=== PATIENT | male | born 1945 | race Caucasian/White ===

== ENCOUNTER 2020-12-21 06:56 | Day surgery (SDC) | payer MEDICARE ==
[~2020-12-21] VITALS: Ht 182.9 cm; Wt 97.0 kg
[~2020-12-21 06:56] MED LIST: ASPI81TA45 PO; CHOL10003 PO; CITRACAL PO; EMPA10TA PO; INSU100I32 SC; INSU100V14 SC; LOSA25TA25 PO; MESA10005 RC; NOVOLOG SC; OMEP-110 PO; SEMA1PEN3 SC; STOOL SOFTENER PO
[2020-12-21] MEDS ORDERED: ATOR20TA37 PO (07:35)
[2020-12-21 07:38] VITALS: BP 129/83
[2020-12-21] MEDS ORDERED: METOPROLOL 1 MG/ML, 5ML IV PRN (08:00)
[2020-12-21] MEDS ORDERED: PROMETHAZINE 25 MG/ML, 1ML IVPush PRN ×2 (08:00→08:30)
[2020-12-21] MEDS ORDERED: CHLORHEXIDINE 15 ML UDC PO ONE (08:00)
[2020-12-21] MEDS ORDERED: LACTATED RINGERS 1,000 ML IV SCH (08:00)
[2020-12-21] MEDS ORDERED: EPHEDRINE 50 MG/ML, 1ML IVPush PRN (08:00)
[2020-12-21] MEDS ORDERED: ACETAMINOPHEN 325 MG TABLET PO PRN ×2 (08:00→08:30)
[2020-12-21] MEDS ORDERED: LABETALOL 5MG/ML, 20ML IV PRN (08:00)
[2020-12-21] MEDS ORDERED: ONDANSETRON 2MG/ML, 2ML IVPush PRN ×2 (08:00→08:30)
[2020-12-21] MEDS ORDERED: FENTANYL PF 100 MCG/2ML IV PRN (08:00)
[2020-12-21] MEDS ORDERED: OXYcodone 5 MG/5 ML ORAL.SOL UDC PO PRN (08:00)
[2020-12-21] MEDS ORDERED: DIPHENHYDRAMINE 50 MG/ML, 1ML IVPush PRN ×2 (08:00→08:30)
[2020-12-21] MEDS ORDERED: METOCLOPRAMIDE 5 MG/ML, 2ML IVPush PRN ×2 (08:00→08:30)
[2020-12-21] MEDS ORDERED: hydrALAzine 20 MG/ML, 1ML IV PRN (08:00)
[2020-12-21] MEDS ORDERED: HALOPERIDOL 5 MG/ML IV PRN ×2 (08:00→08:30)
[2020-12-21] MEDS ORDERED: FENTANYL PF 100 MCG/2ML ONE (08:24)
[2020-12-21] MEDS ORDERED: LIDOCAINE 1%, 20ML ONE (08:41)
[2020-12-21] MEDS ORDERED: PROPOFOL 10 MG/ML, 20ML ONE (08:41)
== END 2020-12-21 10:15 | disposition home or self-care (01) ==
LOC: OUT 06:56
PROVIDERS: ATTEND Internal Medicine Geriatric Medicine
DX: K62.7 Radiation proctitis (principal); K62.5 Hemorrhage of anus and rectum; K21.9 Gastro-esophageal reflux disease without esophagitis; E11.22 Type 2 diabetes mellitus with diabetic chronic kidney disease; I12.9 Hypertensive chronic kidney disease with stage 1 through stage 4 chronic kidney disease, or unspecified chronic kidney disease; N18.9 Chronic kidney disease, unspecified; E55.9 Vitamin D deficiency, unspecified; E78.5 Hyperlipidemia, unspecified; Z20.822 Contact with and (suspected) exposure to COVID-19; Z79.82 Long term (current) use of aspirin; Z79.4 Long term (current) use of insulin; Z79.899 Other long term (current) drug therapy; Z85.46 Personal history of malignant neoplasm of prostate; Z86.010 Personal history of colon polyps; Z82.49 Family history of ischemic heart disease and other diseases of the circulatory system
CPT/HCPCS: 45346; 82962; 87635; 93005; J2704; J3010; J7120